=== PATIENT | female | born 2000 | race American Indian/Alaskan Native ===

== ENCOUNTER 2019-01-25 17:14 | Outpatient (CLI) | payer OTHER ==
[2019-01-25] MEDS ORDERED: LACTATED RINGERS 1,000 ML ONE (19:26)
[2019-01-25] MEDS ORDERED: LACTATED RINGERS 1,000 ML IV ONE (19:27)
--- NOTE | 2019-01-25 20:01 | Ultrasound Report ---
US OB BPP WO NON-STRESS, US OB BPP EA ADD EXAM CLINICAL INDICATION: Female, 18 years of age. BPP COMPARISON: None available. TECHNIQUE: Several real-time grayscale and color Doppler images were obtained. Permanent images were secured for documentation. FINDINGS: Twin live IUP. Normal breathing movements, movements, posterotemporal and qualitative amniotic flu id volume for both fetuses. Twin A heart rate 141 bpm.. Twin B heart rate 128 bpm. IMPRESSION: Biophysical profile score 8/8 for both twin A and twin B. This document is electronically signed by Unruly Heard DO., January 25 2019 07:59:09 PM ET
[2019-01-25 20:09] LABS: Basophils % (Auto) 0.2 % (0.0-1.8); Eosinophils # (Auto) 0.1 K/mm3 (0.0-0.4); Eosinophils % (Auto) 0.5 % (0.0-4.3); Hematocrit 28.7 % (30.3-42.9); Hemoglobin 9.2 gm/dl (10.1-14.3); Lymphocytes # (Auto) 1.7 K/mm3 (1.2-5.4); Lymphocytes % (Auto) 13.2 % (13.4-35.0); Mean Corpuscular HGB Conc 32 % (30-34); Mean Corpuscular Volume 82 fl (79-97); Monocytes # (Auto) 1.5 K/mm3 (0.0-0.8); Monocytes % (Auto) 11.4 % (0.0-7.3); Platelet Count 332 K/mm3 (140-440); Red Blood Count 3.51 M/mm3 (3.65-5.03); Red Cell Distribution Width 15.6 % (13.2-15.2)
[2019-01-25 20:16] LABS: Bacteria,Urine 1+ /HPF (Negative); Bilirubin,Urine NEG (Negative); Blood,Urine NEG (Negative); Color,Urine Yellow (Yellow); Mucus,Urine FEW /HPF; Urobilinogen,Urine < 2.0 mg/dL (<2.0)
[2019-01-25 20:29] LABS: Alanine Aminotransferase 7 units/L (7-56); Albumin 3.1 g/dL (3.9-5); BUN/Creatinine Ratio 12; Blood Urea Nitrogen 6 mg/dL (7-17); Calcium 9.1 mg/dL (8.4-10.2); Hemolysis Index 22
[2019-01-25 20:32] VITALS: BP 120/60
== END 2019-01-25 21:01 | disposition home or self-care (01) ==
LOC: TRG 17:14
PROVIDERS: ATTEND Obstetrics & Gynecology
DX: O26.893 Other specified pregnancy related conditions, third trimester (principal); R42 Dizziness and giddiness; R07.9 Chest pain, unspecified; H53.8 Other visual disturbances; O30.003 Twin pregnancy, unspecified number of placenta and unspecified number of amniotic sacs, third trimester; O99.513 Diseases of the respiratory system complicating pregnancy, third trimester; J45.909 Unspecified asthma, uncomplicated; Z3A.31 31 weeks gestation of pregnancy
CPT/HCPCS: 36415; 59025; 76819; 80053; 81001; 82962; 85025; 96360; J7120